=== PATIENT | male | born 1940 | race Caucasian/White ===

== ENCOUNTER 2022-04-22 08:39 | Inpatient (IN) ==
[2022-04-22] MEDS ORDERED: Ipratropium/Albuterol Neb 3 ML IH PRN (16:55)
[2022-04-22] MEDS ORDERED: polyethylene glycoL 3350 17 GM POWD.PACK PO PRN (17:02)
[2022-04-22] MEDS ORDERED: Saliva Stimulant 44.3ml BOTTLE PO PRN (17:21)
[2022-04-22] MEDS: risperiDONE 0.25 MG TABLET PO SCH (20:59)
[2022-04-22] MEDS: Budesonide/Formoterol 160/4.5 1 PUFF INH IH SCH (21:31)
[2022-04-23 05:19] LABS: Basophils % 0.3 %; Eosinophils % 0.2 %; Hematocrit 38.3 % (37.5-50.1); Hemoglobin 12.6 g/dL (12.9-16.9); Immature Granulocytes % 1.1 % (0-4); Lymphocytes # 0.9 K/mcL (0.6-4.6); Lymphocytes % 9.3 %; Mean Corpuscular HGB Conc 32.9 g/dL (31.6-35.5); Mean Corpuscular Hemoglobin 30.3 pg (28.0-33.3); Mean Corpuscular Volume 92.1 fL (83.0-100.0); Mean Platelet Volume 9.6 fL (9.4-12.4); Monocytes # 0.9 K/mcL (0.0-1.3); Monocytes % 9.3 %; Neutrophils # 7.6 K/mcL (1.6-8.9); Platelet Count 211 K/mcL (140-400); Red Blood Count 4.16 M/mcL (4.19-5.50); Red Cell Distribution Width 13.1 % (11.5-14.5); Segmented Neutrophils % 79.8 %; White Blood Count 9.6 K/mcL (4.3-11.1)
[2022-04-23 05:37] LABS: BUN/Creatinine Ratio 25 (6-26); Blood Urea Nitrogen 29 mg/dL (8-23); Calcium 9.1 mg/dL (8.6-10.3); Carbon Dioxide 29 mEq/L (23-29); Chloride 106 mEq/L (98-107); Glucose 111 mg/dL (70-105); Osmolality,Calculated 299 (280-300); Sodium 141 mEq/L (136-145); eGFR For African Americans > 60 (> 60); eGFR For Non-African Americans > 60 (> 60)
[2022-04-23] MEDS: *HR* Enoxaparin 40 MG/0.4 ML SYRINGE SQ SCH (05:43)
[2022-04-23] MEDS: Aspirin Enteric Coated 81 MG Tablet PO SCH (08:54)
[2022-04-23] MEDS: Fenofibrate 54 MG TABLET PO SCH (08:54)
[2022-04-23] MEDS ORDERED: Acetaminophen 325 MG TABLET PO SCH (09:00)
[2022-04-23] MEDS: Budesonide/Formoterol 160/4.5 1 PUFF INH IH SCH ×2 (09:55→22:13)
[2022-04-23] MEDS: Tiotropium 10 INH DOSE IH SCH (09:55)
[2022-04-23] MEDS: Fluticasone Propionate Nasal 50 MCG/SPRAY BOTTLE NS SCH (10:10)
[2022-04-23] MEDS: polyethylene glycoL 3350 17 GM POWD.PACK PO SCH (12:39)
[2022-04-23] MEDS: Melatonin 3 MG TABLET PO PRN (20:29)
[2022-04-23] MEDS: risperiDONE 0.25 MG TABLET PO SCH (20:29)
[2022-04-24] MEDS: *HR* Enoxaparin 40 MG/0.4 ML SYRINGE SQ SCH (04:59)
[2022-04-24] MEDS: polyethylene glycoL 3350 17 GM POWD.PACK PO SCH (09:07)
[2022-04-24] MEDS: Fluticasone Propionate Nasal 50 MCG/SPRAY BOTTLE NS SCH (09:08)
[2022-04-24] MEDS: Fenofibrate 54 MG TABLET PO SCH (09:08)
[2022-04-24] MEDS: Aspirin Enteric Coated 81 MG Tablet PO SCH (09:09)
[2022-04-24] MEDS: Tiotropium 10 INH DOSE IH SCH (10:12)
[2022-04-24] MEDS: Budesonide/Formoterol 160/4.5 1 PUFF INH IH SCH ×2 (10:12→19:41)
[2022-04-24] MEDS: risperiDONE 0.25 MG TABLET PO SCH (20:40)
[2022-04-24] MEDS: Melatonin 3 MG TABLET PO PRN (20:40)
[2022-04-25] MEDS: *HR* Enoxaparin 40 MG/0.4 ML SYRINGE SQ SCH (04:43)
[2022-04-25 04:46] LABS: Hematocrit 36.4 % (37.5-50.1); Hemoglobin 11.9 g/dL (12.9-16.9); Mean Corpuscular HGB Conc 32.7 g/dL (31.6-35.5); Mean Corpuscular Hemoglobin 30.3 pg (28.0-33.3); Mean Corpuscular Volume 92.6 fL (83.0-100.0); Mean Platelet Volume 9.5 fL (9.4-12.4); Platelet Count 202 K/mcL (140-400); Red Blood Count 3.93 M/mcL (4.19-5.50); Red Cell Distribution Width 13.3 % (11.5-14.5); White Blood Count 8.7 K/mcL (4.3-11.1)
[2022-04-25 05:02] LABS: BUN/Creatinine Ratio 21 (6-26); Blood Urea Nitrogen 21 mg/dL (8-23); Calcium 9.2 mg/dL (8.6-10.3); Carbon Dioxide 28 mEq/L (23-29); Chloride 103 mEq/L (98-107); Glucose 109 mg/dL (70-105); Osmolality,Calculated 288 (280-300); Potassium 4.1 mEq/L (3.5-5.1); Sodium 137 mEq/L (136-145); eGFR For African Americans > 60 (> 60); eGFR For Non-African Americans > 60 (> 60)
[2022-04-25] MEDS: Fenofibrate 54 MG TABLET PO SCH (08:18)
[2022-04-25] MEDS: Aspirin Enteric Coated 81 MG Tablet PO SCH (08:19)
[2022-04-25] MEDS: polyethylene glycoL 3350 17 GM POWD.PACK PO SCH (08:21)
[2022-04-25] MEDS: Fluticasone Propionate Nasal 50 MCG/SPRAY BOTTLE NS SCH (08:22)
[2022-04-25] MEDS: Budesonide/Formoterol 160/4.5 1 PUFF INH IH SCH ×2 (09:00→21:09)
[2022-04-25] MEDS: Tiotropium 10 INH DOSE IH SCH (09:00)
[2022-04-25] MEDS ORDERED: Perflutren Lipid Microsphere 1.3 ML in 0.9 % Sodium Chloride 8.7 ML IVP PRN (10:01)
[2022-04-25] MEDS ORDERED: polyethylene glycoL 3350 17 GM POWD.PACK PO ONE (16:30)
[2022-04-25] MEDS: risperiDONE 0.25 MG TABLET PO SCH (20:22)
[2022-04-25] MEDS: Melatonin 3 MG TABLET PO PRN (20:22)
[2022-04-26] MEDS: *HR* Enoxaparin 40 MG/0.4 ML SYRINGE SQ SCH (04:29)
[2022-04-26] MEDS: Budesonide/Formoterol 160/4.5 1 PUFF INH IH SCH ×2 (07:47→21:12)
[2022-04-26] MEDS: Tiotropium 10 INH DOSE IH SCH (07:48)
[2022-04-26] MEDS: Fenofibrate 54 MG TABLET PO SCH (08:16)
[2022-04-26] MEDS: Aspirin Enteric Coated 81 MG Tablet PO SCH (08:16)
[2022-04-26] MEDS: polyethylene glycoL 3350 17 GM POWD.PACK PO SCH (08:17)
[2022-04-26] MEDS: Fluticasone Propionate Nasal 50 MCG/SPRAY BOTTLE NS SCH (08:18)
[2022-04-26] MEDS: risperiDONE 0.25 MG TABLET PO SCH (20:04)
[2022-04-27] MEDS: *HR* Enoxaparin 40 MG/0.4 ML SYRINGE SQ SCH (05:35)
[2022-04-27] MEDS: Fenofibrate 54 MG TABLET PO SCH (08:37)
[2022-04-27] MEDS: Aspirin Enteric Coated 81 MG Tablet PO SCH (08:37)
[2022-04-27] MEDS: polyethylene glycoL 3350 17 GM POWD.PACK PO SCH (08:38)
[2022-04-27] MEDS ORDERED: Ergocalciferol (VIT D2) 50,000 UNIT (1.25MG) CAP PO SCH (09:00)
[2022-04-27] MEDS: Tiotropium 10 INH DOSE IH SCH (10:19)
[2022-04-27] MEDS: Budesonide/Formoterol 160/4.5 1 PUFF INH IH SCH ×2 (10:21→19:03)
[2022-04-27] MEDS: Fluticasone Propionate Nasal 50 MCG/SPRAY BOTTLE NS SCH (12:06)
[2022-04-27] MEDS: Melatonin 3 MG TABLET PO PRN (23:00)
[2022-04-27] MEDS: risperiDONE 0.25 MG TABLET PO SCH (23:01)
[2022-04-28] MEDS: *HR* Enoxaparin 40 MG/0.4 ML SYRINGE SQ SCH (06:28)
[2022-04-28] MEDS: polyethylene glycoL 3350 17 GM POWD.PACK PO SCH (08:50)
[2022-04-28] MEDS: Fenofibrate 54 MG TABLET PO SCH (08:50)
[2022-04-28] MEDS: Aspirin Enteric Coated 81 MG Tablet PO SCH (08:50)
[2022-04-28] MEDS: Fluticasone Propionate Nasal 50 MCG/SPRAY BOTTLE NS SCH (08:51)
[2022-04-28] MEDS: Tiotropium 10 INH DOSE IH SCH (14:31)
[2022-04-28] MEDS: Budesonide/Formoterol 160/4.5 1 PUFF INH IH SCH ×2 (14:32→19:17)
[2022-04-28] MEDS: risperiDONE 0.25 MG TABLET PO SCH (21:43)
[2022-04-29] MEDS: *HR* Enoxaparin 40 MG/0.4 ML SYRINGE SQ SCH (05:02)
[2022-04-29] MEDS: Budesonide/Formoterol 160/4.5 1 PUFF INH IH SCH ×2 (07:30→21:21)
[2022-04-29] MEDS: Tiotropium 10 INH DOSE IH SCH (07:30)
[2022-04-29] MEDS: Aspirin Enteric Coated 81 MG Tablet PO SCH (10:30)
[2022-04-29] MEDS: Fenofibrate 54 MG TABLET PO SCH (10:30)
[2022-04-29] MEDS: polyethylene glycoL 3350 17 GM POWD.PACK PO SCH ×2 (10:30→10:34)
[2022-04-29] MEDS: Fluticasone Propionate Nasal 50 MCG/SPRAY BOTTLE NS SCH (10:32)
[2022-04-29] MEDS: Melatonin 3 MG TABLET PO PRN (20:46)
[2022-04-29] MEDS: risperiDONE 0.25 MG TABLET PO SCH (20:47)
[2022-04-30] MEDS: *HR* Enoxaparin 40 MG/0.4 ML SYRINGE SQ SCH (06:50)
[2022-04-30] MEDS: polyethylene glycoL 3350 17 GM POWD.PACK PO SCH (09:03)
[2022-04-30] MEDS: Aspirin Enteric Coated 81 MG Tablet PO SCH (09:04)
[2022-04-30] MEDS: Fenofibrate 54 MG TABLET PO SCH (09:04)
[2022-04-30] MEDS: Fluticasone Propionate Nasal 50 MCG/SPRAY BOTTLE NS SCH (09:05)
[2022-04-30] MEDS: Tiotropium 10 INH DOSE IH SCH (10:33)
[2022-04-30] MEDS: Budesonide/Formoterol 160/4.5 1 PUFF INH IH SCH ×2 (10:36→21:13)
[2022-04-30] MEDS: Acetaminophen 325 MG TABLET PO PRN (20:16)
[2022-04-30] MEDS: risperiDONE 0.25 MG TABLET PO SCH (20:17)
[2022-04-30] MEDS: Melatonin 3 MG TABLET PO PRN (20:17)
[2022-05-01] MEDS: *HR* Enoxaparin 40 MG/0.4 ML SYRINGE SQ SCH (05:30)
[2022-05-01] MEDS: Fenofibrate 54 MG TABLET PO SCH (08:43)
[2022-05-01] MEDS: Aspirin Enteric Coated 81 MG Tablet PO SCH (08:43)
[2022-05-01] MEDS: polyethylene glycoL 3350 17 GM POWD.PACK PO SCH (08:44)
[2022-05-01] MEDS: Fluticasone Propionate Nasal 50 MCG/SPRAY BOTTLE NS SCH (08:44)
[2022-05-01] MEDS: Tiotropium 10 INH DOSE IH SCH (11:09)
[2022-05-01] MEDS: Budesonide/Formoterol 160/4.5 1 PUFF INH IH SCH ×2 (11:11→19:06)
[2022-05-01] MEDS: Acetaminophen 325 MG TABLET PO PRN (20:01)
[2022-05-01] MEDS: Melatonin 3 MG TABLET PO PRN (20:01)
[2022-05-01] MEDS: risperiDONE 0.25 MG TABLET PO SCH (20:02)
[2022-05-02 05:03] LABS: Basophils # 0.1 K/mcL (0.0-0.2); Basophils % 0.7 %; Eosinophils # 0.2 K/mcL (0.0-0.6); Eosinophils % 3.2 %; Hematocrit 35.2 % (37.5-50.1); Hemoglobin 11.4 g/dL (12.9-16.9); Immature Granulocytes % 1.9 % (0-4); Lymphocytes % 13.4 %; Mean Corpuscular HGB Conc 32.4 g/dL (31.6-35.5); Mean Corpuscular Hemoglobin 30.5 pg (28.0-33.3); Mean Corpuscular Volume 94.1 fL (83.0-100.0); Mean Platelet Volume 9.7 fL (9.4-12.4); Monocytes # 0.6 K/mcL (0.0-1.3); Monocytes % 8.6 %; Neutrophils # 5.3 K/mcL (1.6-8.9); Platelet Count 176 K/mcL (140-400); Red Blood Count 3.74 M/mcL (4.19-5.50); Red Cell Distribution Width 13.6 % (11.5-14.5); Segmented Neutrophils % 72.2 %; White Blood Count 7.3 K/mcL (4.3-11.1)
[2022-05-02] MEDS: *HR* Enoxaparin 40 MG/0.4 ML SYRINGE SQ SCH (05:10)
[2022-05-02 05:14] LABS: BUN/Creatinine Ratio 26 (6-26); Blood Urea Nitrogen 28 mg/dL (8-23); Calcium 9.7 mg/dL (8.6-10.3); Carbon Dioxide 27 mEq/L (23-29); Chloride 107 mEq/L (98-107); Glucose 102 mg/dL (70-105); Osmolality,Calculated 294 (280-300); Potassium 4.2 mEq/L (3.5-5.1); Sodium 139 mEq/L (136-145); eGFR For African Americans > 60 (> 60); eGFR For Non-African Americans > 60 (> 60)
[2022-05-02] MEDS: Aspirin Enteric Coated 81 MG Tablet PO SCH (08:05)
[2022-05-02] MEDS: Fenofibrate 54 MG TABLET PO SCH (08:05)
[2022-05-02] MEDS: Fluticasone Propionate Nasal 50 MCG/SPRAY BOTTLE NS SCH (08:06)
[2022-05-02] MEDS: polyethylene glycoL 3350 17 GM POWD.PACK PO SCH (08:06)
[2022-05-02] MEDS: Tiotropium 10 INH DOSE IH SCH (10:16)
[2022-05-02] MEDS: Budesonide/Formoterol 160/4.5 1 PUFF INH IH SCH ×2 (10:17→21:54)
[2022-05-02] MEDS: risperiDONE 0.25 MG TABLET PO SCH (21:18)
[2022-05-02] MEDS: Melatonin 3 MG TABLET PO PRN (21:18)
[2022-05-02] MEDS: Acetaminophen 325 MG TABLET PO PRN (21:18)
[2022-05-03 04:18] VITALS: O2SAT 98
[2022-05-03] MEDS: *HR* Enoxaparin 40 MG/0.4 ML SYRINGE SQ SCH (05:35)
[2022-05-03 07:32] VITALS: BP 117/76; PULSE 56; TEMP 98.3
[2022-05-03] MEDS: Fenofibrate 54 MG TABLET PO SCH (08:14)
[2022-05-03] MEDS: polyethylene glycoL 3350 17 GM POWD.PACK PO SCH (08:14)
[2022-05-03] MEDS: Aspirin Enteric Coated 81 MG Tablet PO SCH (08:14)
[2022-05-03] MEDS: Tiotropium 10 INH DOSE IH SCH (09:21)
[2022-05-03] MEDS: Budesonide/Formoterol 160/4.5 1 PUFF INH IH SCH (09:21)
[2022-05-03 09:23] VITALS: RESP 16
== END 2022-05-03 14:14 | disposition home or self-care (01) | DRG 199 ==
LOC: INPGRE 15:41
PROVIDERS: ADMIT Family Medicine; ATTEND Family Medicine

== ENCOUNTER 2022-06-01 00:10 | Inpatient (IN) ==
[2022-06-01] MEDS ORDERED: Fluticasone Propionate Nasal 50 MCG/SPRAY BOTTLE NS PRN (00:47)
[2022-06-01] MEDS ORDERED: polyethylene glycoL 3350 17 GM POWD.PACK PO PRN (00:47)
[2022-06-01] MEDS ORDERED: Triamcinolone Acet 0.1% CRM 15 GM TUBE TP PRN (00:47)
[2022-06-01 03:14] LABS: Bilirubin,Urine Negative (Negative); Blood,Urine Negative (Negative); Clarity,Urine Clear (Clear); Color,Urine Yellow (Yellow); Glucose,Urine (UA) Normal (Normal); Ketones,Urine Negative (Negative); Leukocyte Esterase,Urine Negative (Negative); Nitrite,Urine Negative (Negative); Protein,Urine Negative (Neg-Trace); Specific Gravity,Urine 1.015 (1.010-1.025); Urobilinogen,Urine Normal (Normal)
[2022-06-01 04:30] LABS: Basophils # 0.1 K/mcL (0.0-0.2); Basophils % 0.6 %; Eosinophils # 0.2 K/mcL (0.0-0.6); Eosinophils % 2.5 %; Hematocrit 35.2 % (37.5-50.1); Hemoglobin 11.8 g/dL (12.9-16.9); Immature Granulocytes % 0.9 % (0-4); Mean Corpuscular HGB Conc 33.5 g/dL (31.6-35.5); Mean Corpuscular Hemoglobin 30.6 pg (28.0-33.3); Mean Corpuscular Volume 91.2 fL (83.0-100.0); Mean Platelet Volume 9.5 fL (9.4-12.4); Monocytes # 0.8 K/mcL (0.0-1.3); Monocytes % 8.4 %; Platelet Count 181 K/mcL (140-400); Red Blood Count 3.86 M/mcL (4.19-5.50); Red Cell Distribution Width 13.6 % (11.5-14.5); Segmented Neutrophils % 76.6 %; White Blood Count 9.1 K/mcL (4.3-11.1)
[2022-06-01 04:46] LABS: Albumin 3.9 g/dL (3.5-5.7); Albumin/Globulin Ratio 1.4 (1.1-2.2); Bilirubin,Direct 0.1 mg/dL (0.0-0.2); Bilirubin,Indirect 0.4 mg/dL (0.0-1.0); Bilirubin,Total 0.5 mg/dL (0.3-1.0); Calcium 9.6 mg/dL (8.6-10.3); Globulin 2.8 g/dL (2.4-3.5); Total Protein 6.7 g/dL (6.4-8.9)
[2022-06-01] MEDS: *HR* Enoxaparin 40 MG/0.4 ML SYRINGE SQ SCH (05:47)
[2022-06-01] MEDS: Tiotropium 10 INH DOSE IH SCH (08:03)
[2022-06-01] MEDS: Budesonide/Formoterol 160/4.5 1 PUFF INH IH SCH (08:03)
[2022-06-01] MEDS: Fenofibrate 54 MG TABLET PO SCH (08:06)
[2022-06-01] MEDS: Cholecalciferol (D-3) 1,000 UNIT (25MCG) TABLET PO SCH (08:06)
[2022-06-01] MEDS: Vitamin B Complex/Vit C/Vit E 1 EACH TABLET PO SCH (08:06)
[2022-06-01] MEDS: Thiamine (B-1) 100 MG TABLET PO SCH (08:06)
[2022-06-01] MEDS: Aspirin Enteric Coated 81 MG Tablet PO SCH (08:06)
[2022-06-01] MEDS: Folic Acid 1 MG TABLET PO SCH (08:06)
[2022-06-01] MEDS: Melatonin 3 MG TABLET PO PRN (20:11)
[2022-06-01] MEDS: CLEAR EYES NATURAL TEARS 15 ML BOTTLE BOTH EYES SCH (20:12)
[2022-06-01] MEDS: risperiDONE 0.25 MG TABLET PO SCH (20:12)
[2022-06-02] MEDS: *HR* Enoxaparin 40 MG/0.4 ML SYRINGE SQ SCH (04:45)
[2022-06-02] MEDS: Budesonide/Formoterol 160/4.5 1 PUFF INH IH SCH (08:00)
[2022-06-02] MEDS: Tiotropium 10 INH DOSE IH SCH (08:01)
[2022-06-02] MEDS: Aspirin Enteric Coated 81 MG Tablet PO SCH (08:27)
[2022-06-02] MEDS: Fenofibrate 54 MG TABLET PO SCH (08:28)
[2022-06-02] MEDS: Thiamine (B-1) 100 MG TABLET PO SCH (08:28)
[2022-06-02] MEDS: Vitamin B Complex/Vit C/Vit E 1 EACH TABLET PO SCH (08:28)
[2022-06-02] MEDS: Folic Acid 1 MG TABLET PO SCH (08:28)
[2022-06-02] MEDS: Cholecalciferol (D-3) 1,000 UNIT (25MCG) TABLET PO SCH (08:28)
[2022-06-02] MEDS: risperiDONE 0.25 MG TABLET PO SCH (20:11)
[2022-06-02] MEDS: Melatonin 3 MG TABLET PO PRN (20:12)
[2022-06-02] MEDS: CLEAR EYES NATURAL TEARS 15 ML BOTTLE BOTH EYES SCH (20:15)
[2022-06-03] MEDS: *HR* Enoxaparin 40 MG/0.4 ML SYRINGE SQ SCH (06:13)
[2022-06-03] MEDS: Folic Acid 1 MG TABLET PO SCH (07:54)
[2022-06-03] MEDS: Cholecalciferol (D-3) 1,000 UNIT (25MCG) TABLET PO SCH (07:54)
[2022-06-03] MEDS: Vitamin B Complex/Vit C/Vit E 1 EACH TABLET PO SCH (07:54)
[2022-06-03] MEDS: Aspirin Enteric Coated 81 MG Tablet PO SCH (07:54)
[2022-06-03] MEDS: Fenofibrate 54 MG TABLET PO SCH (07:54)
[2022-06-03] MEDS: Thiamine (B-1) 100 MG TABLET PO SCH (07:54)
[2022-06-03] MEDS: Budesonide/Formoterol 160/4.5 1 PUFF INH IH SCH (10:06)
[2022-06-03] MEDS: Tiotropium 10 INH DOSE IH SCH (10:06)
[2022-06-03] MEDS: risperiDONE 0.25 MG TABLET PO SCH (20:41)
[2022-06-03] MEDS: CLEAR EYES NATURAL TEARS 15 ML BOTTLE BOTH EYES SCH (20:46)
[2022-06-04] MEDS: *HR* Enoxaparin 40 MG/0.4 ML SYRINGE SQ SCH (04:18)
[2022-06-04] MEDS: Tiotropium 10 INH DOSE IH SCH (07:52)
[2022-06-04] MEDS: Budesonide/Formoterol 160/4.5 1 PUFF INH IH SCH (07:52)
[2022-06-04] MEDS: Thiamine (B-1) 100 MG TABLET PO SCH (08:08)
[2022-06-04] MEDS: Folic Acid 1 MG TABLET PO SCH (08:08)
[2022-06-04] MEDS: Vitamin B Complex/Vit C/Vit E 1 EACH TABLET PO SCH (08:08)
[2022-06-04] MEDS: Aspirin Enteric Coated 81 MG Tablet PO SCH (08:08)
[2022-06-04] MEDS: Cholecalciferol (D-3) 1,000 UNIT (25MCG) TABLET PO SCH (08:08)
[2022-06-04] MEDS: Fenofibrate 54 MG TABLET PO SCH (08:09)
[2022-06-04] MEDS: risperiDONE 0.25 MG TABLET PO SCH (20:38)
[2022-06-04] MEDS: Melatonin 3 MG TABLET PO SCH (20:38)
[2022-06-04] MEDS: CLEAR EYES NATURAL TEARS 15 ML BOTTLE BOTH EYES SCH (20:39)
[2022-06-05 04:35] LABS: Hematocrit 36.4 % (37.5-50.1); Hemoglobin 11.9 g/dL (12.9-16.9); Mean Corpuscular HGB Conc 32.7 g/dL (31.6-35.5); Mean Corpuscular Hemoglobin 30.2 pg (28.0-33.3); Mean Corpuscular Volume 92.4 fL (83.0-100.0); Mean Platelet Volume 9.7 fL (9.4-12.4); Platelet Count 184 K/mcL (140-400); Red Blood Count 3.94 M/mcL (4.19-5.50); Red Cell Distribution Width 13.8 % (11.5-14.5); White Blood Count 6.8 K/mcL (4.3-11.1)
[2022-06-05] MEDS: *HR* Enoxaparin 40 MG/0.4 ML SYRINGE SQ SCH (04:35)
[2022-06-05 04:49] LABS: Calcium 9.9 mg/dL (8.6-10.3); Potassium 4.3 mEq/L (3.5-5.1)
[2022-06-05] MEDS: Tiotropium 10 INH DOSE IH SCH (07:47)
[2022-06-05] MEDS: Budesonide/Formoterol 160/4.5 1 PUFF INH IH SCH (07:47)
[2022-06-05] MEDS: Cholecalciferol (D-3) 1,000 UNIT (25MCG) TABLET PO SCH (08:25)
[2022-06-05] MEDS: Thiamine (B-1) 100 MG TABLET PO SCH (08:25)
[2022-06-05] MEDS: Folic Acid 1 MG TABLET PO SCH (08:25)
[2022-06-05] MEDS: Aspirin Enteric Coated 81 MG Tablet PO SCH (08:25)
[2022-06-05] MEDS: Fenofibrate 54 MG TABLET PO SCH (08:25)
[2022-06-05] MEDS: Vitamin B Complex/Vit C/Vit E 1 EACH TABLET PO SCH (08:25)
[2022-06-05] MEDS: Neosporin OINT 1 APPL PACKET TP SCH (18:44)
[2022-06-05] MEDS: Melatonin 3 MG TABLET PO SCH (21:14)
[2022-06-05] MEDS: Acetaminophen 325 MG TABLET PO PRN (21:14)
[2022-06-05] MEDS: risperiDONE 0.25 MG TABLET PO SCH (21:14)
[2022-06-05] MEDS: CLEAR EYES NATURAL TEARS 15 ML BOTTLE BOTH EYES SCH (21:21)
[2022-06-06] MEDS: *HR* Enoxaparin 40 MG/0.4 ML SYRINGE SQ SCH (04:49)
[2022-06-06] MEDS: Budesonide/Formoterol 160/4.5 1 PUFF INH IH SCH (07:43)
[2022-06-06] MEDS: Tiotropium 10 INH DOSE IH SCH (07:43)
[2022-06-06] MEDS: Fenofibrate 54 MG TABLET PO SCH (07:59)
[2022-06-06] MEDS: Aspirin Enteric Coated 81 MG Tablet PO SCH (07:59)
[2022-06-06] MEDS: Cholecalciferol (D-3) 1,000 UNIT (25MCG) TABLET PO SCH (07:59)
[2022-06-06] MEDS: Folic Acid 1 MG TABLET PO SCH (07:59)
[2022-06-06] MEDS: Vitamin B Complex/Vit C/Vit E 1 EACH TABLET PO SCH (08:00)
[2022-06-06] MEDS: Neosporin OINT 1 APPL PACKET TP SCH (08:00)
[2022-06-06] MEDS: Thiamine (B-1) 100 MG TABLET PO SCH (08:00)
[2022-06-06] MEDS: Melatonin 3 MG TABLET PO SCH (19:46)
[2022-06-06] MEDS: Acetaminophen 325 MG TABLET PO PRN (19:46)
[2022-06-06] MEDS: risperiDONE 0.25 MG TABLET PO SCH (19:47)
[2022-06-06] MEDS: CLEAR EYES NATURAL TEARS 15 ML BOTTLE BOTH EYES SCH (19:47)
[2022-06-07] MEDS: *HR* Enoxaparin 40 MG/0.4 ML SYRINGE SQ SCH (04:43)
[2022-06-07] MEDS: Fenofibrate 54 MG TABLET PO SCH (07:56)
[2022-06-07] MEDS: Neosporin OINT 1 APPL PACKET TP SCH (07:56)
[2022-06-07] MEDS: Thiamine (B-1) 100 MG TABLET PO SCH (07:56)
[2022-06-07] MEDS: Vitamin B Complex/Vit C/Vit E 1 EACH TABLET PO SCH (07:56)
[2022-06-07] MEDS: Aspirin Enteric Coated 81 MG Tablet PO SCH (07:56)
[2022-06-07] MEDS: Folic Acid 1 MG TABLET PO SCH (07:56)
[2022-06-07] MEDS: Cholecalciferol (D-3) 1,000 UNIT (25MCG) TABLET PO SCH (07:56)
[2022-06-07] MEDS: Tiotropium 10 INH DOSE IH SCH (09:48)
[2022-06-07] MEDS: Budesonide/Formoterol 160/4.5 1 PUFF INH IH SCH (09:48)
[2022-06-07 21:48] VITALS: BP 133/73; PULSE 71; RESP 17; TEMP 98.3; O2SAT 93
== END 2022-06-07 10:55 | disposition home health service (06) | DRG 951 ==
LOC: INPGRE 00:11
PROVIDERS: ADMIT Family Medicine; ATTEND Family Medicine

== ENCOUNTER 2022-07-08 13:43 | Inpatient (IN) ==
[2022-07-08] MEDS ORDERED: Fluticasone Propionate Nasal 50 MCG/SPRAY BOTTLE NS PRN (19:28)
[2022-07-08] MEDS: Ipratropium/Albuterol Neb 3 ML IH SCH (20:37)
[2022-07-08] MEDS: risperiDONE 0.25 MG TABLET PO SCH (22:00)
[2022-07-08] MEDS ORDERED: Ondansetron 4 MG/2 ML VIAL IVP PRN (23:13)
[2022-07-09 05:04] LABS: Basophils % 0.3 %; Eosinophils # 0.3 K/mcL (0.0-0.6); Eosinophils % 2.1 %; Hematocrit 31.2 % (37.5-50.1); Hemoglobin 10.3 g/dL (12.9-16.9); Immature Granulocytes % 1.8 % (0-4); Lymphocytes # 0.4 K/mcL (0.6-4.6); Lymphocytes % 3.3 %; Mean Corpuscular Hemoglobin 30.3 pg (28.0-33.3); Mean Corpuscular Volume 91.8 fL (83.0-100.0); Mean Platelet Volume 9.2 fL (9.4-12.4); Monocytes # 0.9 K/mcL (0.0-1.3); Monocytes % 6.9 %; Neutrophils # 10.8 K/mcL (1.6-8.9); Platelet Count 287 K/mcL (140-400); Red Cell Distribution Width 13.6 % (11.5-14.5); Segmented Neutrophils % 85.6 %; White Blood Count 12.6 K/mcL (4.3-11.1)
[2022-07-09 05:20] LABS: Albumin 3.3 g/dL (3.5-5.7); Albumin/Globulin Ratio 1.1 (1.1-2.2); Bilirubin,Total 0.6 mg/dL (0.3-1.0); Calcium 9.1 mg/dL (8.6-10.3); Globulin 3.1 g/dL (2.4-3.5); Total Protein 6.4 g/dL (6.4-8.9)
[2022-07-09] MEDS: *HR* Enoxaparin 40 MG/0.4 ML SYRINGE SQ SCH (06:03)
[2022-07-09] MEDS: Ipratropium/Albuterol Neb 3 ML IH SCH ×2 (09:53→19:49)
[2022-07-09] MEDS: Tiotropium 10 INH DOSE IH SCH (09:54)
[2022-07-09] MEDS ORDERED: Ondansetron 4 MG/2 ML VIAL IVP PRN (09:55)
[2022-07-09] MEDS: Budesonide/Formoterol 160/4.5 1 PUFF INH IH SCH ×2 (09:56→19:49)
[2022-07-09] MEDS: Fenofibrate 54 MG TABLET PO SCH (10:23)
[2022-07-09] MEDS: Acetaminophen 325 MG TABLET PO SCH (10:23)
[2022-07-09] MEDS: Vitamin B Complex/Vit C/Vit E 1 EACH TABLET PO SCH (10:23)
[2022-07-09] MEDS: Aspirin Enteric Coated 81 MG Tablet PO SCH (10:23)
[2022-07-09] MEDS: levoFLOXacin 750 MG TABLET PO SCH (10:24)
[2022-07-09] MEDS: Triamcinolone Acet 0.1% CRM 15 GM TUBE TP SCH (10:24)
[2022-07-09] MEDS: risperiDONE 0.25 MG TABLET PO SCH (21:35)
[2022-07-10 05:05] LABS: Hemoglobin 10.2 g/dL (12.9-16.9); Mean Corpuscular HGB Conc 32.9 g/dL (31.6-35.5); Mean Corpuscular Hemoglobin 30.2 pg (28.0-33.3); Mean Corpuscular Volume 91.7 fL (83.0-100.0); Platelet Count 281 K/mcL (140-400); Red Blood Count 3.38 M/mcL (4.19-5.50); Red Cell Distribution Width 13.3 % (11.5-14.5); White Blood Count 10.4 K/mcL (4.3-11.1)
[2022-07-10] MEDS: *HR* Enoxaparin 40 MG/0.4 ML SYRINGE SQ SCH (05:10)
[2022-07-10 05:21] LABS: Calcium 8.8 mg/dL (8.6-10.3); Potassium 3.8 mEq/L (3.5-5.1)
[2022-07-10] MEDS: Tiotropium 10 INH DOSE IH SCH (08:14)
[2022-07-10] MEDS: Budesonide/Formoterol 160/4.5 1 PUFF INH IH SCH ×2 (08:15→20:50)
[2022-07-10] MEDS: Ipratropium/Albuterol Neb 3 ML IH SCH ×2 (08:19→20:48)
[2022-07-10] MEDS ORDERED: Furosemide 20 MG/2 ML VIAL IVP ONE (09:47)
[2022-07-10] MEDS: Vitamin B Complex/Vit C/Vit E 1 EACH TABLET PO SCH (10:01)
[2022-07-10] MEDS: levoFLOXacin 750 MG TABLET PO SCH (10:01)
[2022-07-10] MEDS: Aspirin Enteric Coated 81 MG Tablet PO SCH (10:01)
[2022-07-10] MEDS: Acetaminophen 325 MG TABLET PO SCH (10:01)
[2022-07-10] MEDS: Fenofibrate 54 MG TABLET PO SCH (10:01)
[2022-07-10] MEDS: Triamcinolone Acet 0.1% CRM 15 GM TUBE TP SCH (10:05)
[2022-07-10] MEDS ORDERED: *HR* HYDROcodone/Acet 5/325 mg TABLET PO PRN (13:51)
[2022-07-10] MEDS ORDERED: *HR* OxyCODONE Immed Rel 5 MG TABLET PO PRN (14:09)
[2022-07-10] MEDS: Gabapentin 100 MG CAPSULE PO SCH ×2 (15:24→21:27)
[2022-07-10] MEDS: polyethylene glycoL 3350 17 GM POWD.PACK PO PRN (17:02)
[2022-07-10] MEDS: risperiDONE 0.25 MG TABLET PO SCH (21:27)
[2022-07-11 04:26] LABS: Hematocrit 31.6 % (37.5-50.1); Hemoglobin 10.3 g/dL (12.9-16.9); Mean Corpuscular HGB Conc 32.6 g/dL (31.6-35.5); Mean Corpuscular Volume 92.1 fL (83.0-100.0); Mean Platelet Volume 8.8 fL (9.4-12.4); Platelet Count 281 K/mcL (140-400); Red Blood Count 3.43 M/mcL (4.19-5.50); Red Cell Distribution Width 13.4 % (11.5-14.5); White Blood Count 9.3 K/mcL (4.3-11.1)
[2022-07-11 04:42] LABS: Albumin 3.2 g/dL (3.5-5.7); Albumin/Globulin Ratio 1.1 (1.1-2.2); Bilirubin,Total 0.4 mg/dL (0.3-1.0); Calcium 9.2 mg/dL (8.6-10.3); Globulin 2.9 g/dL (2.4-3.5); Total Protein 6.1 g/dL (6.4-8.9)
[2022-07-11] MEDS: Gabapentin 100 MG CAPSULE PO SCH ×3 (09:25→21:08)
[2022-07-11] MEDS: Aspirin Enteric Coated 81 MG Tablet PO SCH (09:25)
[2022-07-11] MEDS: Vitamin B Complex/Vit C/Vit E 1 EACH TABLET PO SCH (09:25)
[2022-07-11] MEDS: Fenofibrate 54 MG TABLET PO SCH (09:25)
[2022-07-11] MEDS: Lactobacillus 1 EACH CAP.SPRINK PO SCH (09:25)
[2022-07-11] MEDS: levoFLOXacin 750 MG TABLET PO SCH (09:25)
[2022-07-11] MEDS: MethylPREDNISolone 40 MG/ML VIAL IVP SCH ×2 (09:25→17:30)
[2022-07-11] MEDS: Triamcinolone Acet 0.1% CRM 15 GM TUBE TP SCH (09:48)
[2022-07-11] MEDS: Tiotropium 10 INH DOSE IH SCH (10:06)
[2022-07-11] MEDS: Budesonide/Formoterol 160/4.5 1 PUFF INH IH SCH ×2 (10:07→20:48)
[2022-07-11] MEDS: Ipratropium/Albuterol Neb 3 ML IH SCH ×2 (10:08→20:48)
[2022-07-11] MEDS: risperiDONE 0.25 MG TABLET PO SCH (21:09)
[2022-07-12] MEDS: MethylPREDNISolone 40 MG/ML VIAL IVP SCH ×2 (05:41→16:55)
[2022-07-12] MEDS: *HR* Enoxaparin 40 MG/0.4 ML SYRINGE SQ SCH (05:42)
[2022-07-12] MEDS: Fenofibrate 54 MG TABLET PO SCH (09:08)
[2022-07-12] MEDS: Aspirin Enteric Coated 81 MG Tablet PO SCH (09:08)
[2022-07-12] MEDS: Lactobacillus 1 EACH CAP.SPRINK PO SCH (09:08)
[2022-07-12] MEDS: levoFLOXacin 750 MG TABLET PO SCH (09:08)
[2022-07-12] MEDS: Gabapentin 100 MG CAPSULE PO SCH ×3 (09:08→20:20)
[2022-07-12] MEDS: Vitamin B Complex/Vit C/Vit E 1 EACH TABLET PO SCH (09:08)
[2022-07-12] MEDS: Ipratropium/Albuterol Neb 3 ML IH SCH ×2 (09:39→21:34)
[2022-07-12] MEDS: Tiotropium 10 INH DOSE IH SCH (09:40)
[2022-07-12] MEDS: Budesonide/Formoterol 160/4.5 1 PUFF INH IH SCH ×2 (09:40→21:34)
[2022-07-12] MEDS: Triamcinolone Acet 0.1% CRM 15 GM TUBE TP SCH (10:30)
[2022-07-12] MEDS: risperiDONE 0.25 MG TABLET PO SCH (20:18)
[2022-07-13] MEDS: MethylPREDNISolone 40 MG/ML VIAL IVP SCH ×2 (05:04→17:59)
[2022-07-13] MEDS: *HR* Enoxaparin 40 MG/0.4 ML SYRINGE SQ SCH (05:09)
[2022-07-13] MEDS: Aspirin Enteric Coated 81 MG Tablet PO SCH (08:45)
[2022-07-13] MEDS: Vitamin B Complex/Vit C/Vit E 1 EACH TABLET PO SCH (08:45)
[2022-07-13] MEDS: levoFLOXacin 750 MG TABLET PO SCH (08:45)
[2022-07-13] MEDS: Gabapentin 100 MG CAPSULE PO SCH ×3 (08:45→21:05)
[2022-07-13] MEDS: Lactobacillus 1 EACH CAP.SPRINK PO SCH (08:45)
[2022-07-13] MEDS: Fenofibrate 54 MG TABLET PO SCH (08:45)
[2022-07-13] MEDS: Triamcinolone Acet 0.1% CRM 15 GM TUBE TP SCH (09:01)
[2022-07-13] MEDS: polyethylene glycoL 3350 17 GM POWD.PACK PO PRN (09:09)
[2022-07-13] MEDS: Tiotropium 10 INH DOSE IH SCH (10:16)
[2022-07-13] MEDS: Ipratropium/Albuterol Neb 3 ML IH SCH ×2 (10:16→20:11)
[2022-07-13] MEDS: Budesonide/Formoterol 160/4.5 1 PUFF INH IH SCH ×2 (10:16→20:11)
[2022-07-13] MEDS ORDERED: Ergocalciferol (VIT D2) 50,000 UNIT (1.25MG) CAP PO SCH ×2 (18:00→19:28)
[2022-07-13] MEDS: risperiDONE 0.25 MG TABLET PO SCH (21:04)
[2022-07-14] MEDS: *HR* Enoxaparin 40 MG/0.4 ML SYRINGE SQ SCH (05:42)
[2022-07-14] MEDS: MethylPREDNISolone 40 MG/ML VIAL IVP SCH ×2 (05:42→16:48)
[2022-07-14] MEDS: Gabapentin 100 MG CAPSULE PO SCH ×3 (09:08→21:11)
[2022-07-14] MEDS: Fenofibrate 54 MG TABLET PO SCH (09:08)
[2022-07-14] MEDS: levoFLOXacin 750 MG TABLET PO SCH (09:08)
[2022-07-14] MEDS: Aspirin Enteric Coated 81 MG Tablet PO SCH (09:08)
[2022-07-14] MEDS: Vitamin B Complex/Vit C/Vit E 1 EACH TABLET PO SCH (09:08)
[2022-07-14] MEDS: Lactobacillus 1 EACH CAP.SPRINK PO SCH (09:08)
[2022-07-14] MEDS: Triamcinolone Acet 0.1% CRM 15 GM TUBE TP SCH (09:10)
[2022-07-14] MEDS: Budesonide/Formoterol 160/4.5 1 PUFF INH IH SCH ×2 (10:17→20:39)
[2022-07-14] MEDS: Ipratropium/Albuterol Neb 3 ML IH SCH ×2 (10:17→20:39)
[2022-07-14] MEDS: Tiotropium 10 INH DOSE IH SCH (10:17)
[2022-07-14] MEDS: risperiDONE 0.25 MG TABLET PO SCH (21:11)
[2022-07-15 04:19] LABS: Basophils % 0.3 %; Hematocrit 31.1 % (37.5-50.1); Hemoglobin 10.3 g/dL (12.9-16.9); Immature Granulocytes % 5.4 % (0-4); Lymphocytes # 0.7 K/mcL (0.6-4.6); Lymphocytes % 5.1 %; Mean Corpuscular HGB Conc 33.1 g/dL (31.6-35.5); Mean Corpuscular Hemoglobin 30.1 pg (28.0-33.3); Mean Corpuscular Volume 90.9 fL (83.0-100.0); Mean Platelet Volume 8.6 fL (9.4-12.4); Monocytes # 0.8 K/mcL (0.0-1.3); Platelet Count 311 K/mcL (140-400); Red Blood Count 3.42 M/mcL (4.19-5.50); Red Cell Distribution Width 13.3 % (11.5-14.5); Segmented Neutrophils % 83.2 %; White Blood Count 13.2 K/mcL (4.3-11.1)
[2022-07-15 04:33] LABS: Calcium 8.8 mg/dL (8.6-10.3); Potassium 4.2 mEq/L (3.5-5.1)
[2022-07-15] MEDS: *HR* Enoxaparin 40 MG/0.4 ML SYRINGE SQ SCH (05:51)
[2022-07-15] MEDS: MethylPREDNISolone 40 MG/ML VIAL IVP SCH ×2 (05:51→17:03)
[2022-07-15] MEDS ORDERED: Gabapentin 100 MG CAPSULE PO PRN (07:54)
[2022-07-15] MEDS: Ipratropium/Albuterol Neb 3 ML IH SCH ×2 (09:30→20:30)
[2022-07-15] MEDS: Budesonide/Formoterol 160/4.5 1 PUFF INH IH SCH ×2 (09:30→20:31)
[2022-07-15] MEDS: Tiotropium 10 INH DOSE IH SCH (09:30)
[2022-07-15] MEDS: Fenofibrate 54 MG TABLET PO SCH (10:28)
[2022-07-15] MEDS: Lactobacillus 1 EACH CAP.SPRINK PO SCH (10:29)
[2022-07-15] MEDS: levoFLOXacin 750 MG TABLET PO SCH (10:29)
[2022-07-15] MEDS: Aspirin Enteric Coated 81 MG Tablet PO SCH (10:29)
[2022-07-15] MEDS: Vitamin B Complex/Vit C/Vit E 1 EACH TABLET PO SCH (10:29)
[2022-07-15] MEDS: Triamcinolone Acet 0.1% CRM 15 GM TUBE TP SCH (13:30)
[2022-07-15] MEDS: risperiDONE 0.25 MG TABLET PO SCH (21:08)
[2022-07-16] MEDS: MethylPREDNISolone 40 MG/ML VIAL IVP SCH ×2 (05:25→17:18)
[2022-07-16] MEDS: *HR* Enoxaparin 40 MG/0.4 ML SYRINGE SQ SCH (05:25)
[2022-07-16] MEDS: Budesonide/Formoterol 160/4.5 1 PUFF INH IH SCH ×2 (07:27→21:10)
[2022-07-16] MEDS: Ipratropium/Albuterol Neb 3 ML IH SCH ×2 (07:27→21:10)
[2022-07-16] MEDS: Tiotropium 10 INH DOSE IH SCH (07:27)
[2022-07-16] MEDS: Fenofibrate 54 MG TABLET PO SCH (08:29)
[2022-07-16] MEDS: Aspirin Enteric Coated 81 MG Tablet PO SCH (08:29)
[2022-07-16] MEDS: Lactobacillus 1 EACH CAP.SPRINK PO SCH (08:29)
[2022-07-16] MEDS: Vitamin B Complex/Vit C/Vit E 1 EACH TABLET PO SCH (08:29)
[2022-07-16] MEDS: levoFLOXacin 750 MG TABLET PO SCH (08:29)
[2022-07-16] MEDS: Triamcinolone Acet 0.1% CRM 15 GM TUBE TP SCH (08:34)
[2022-07-16] MEDS: risperiDONE 0.25 MG TABLET PO SCH (19:58)
[2022-07-17] MEDS: MethylPREDNISolone 40 MG/ML VIAL IVP SCH ×2 (05:18→17:02)
[2022-07-17] MEDS: *HR* Enoxaparin 40 MG/0.4 ML SYRINGE SQ SCH (05:18)
[2022-07-17] MEDS: Lactobacillus 1 EACH CAP.SPRINK PO SCH (08:36)
[2022-07-17] MEDS: Fenofibrate 54 MG TABLET PO SCH (08:36)
[2022-07-17] MEDS: Vitamin B Complex/Vit C/Vit E 1 EACH TABLET PO SCH (08:37)
[2022-07-17] MEDS: levoFLOXacin 750 MG TABLET PO SCH (08:37)
[2022-07-17] MEDS: Triamcinolone Acet 0.1% CRM 15 GM TUBE TP SCH (08:37)
[2022-07-17] MEDS: Aspirin Enteric Coated 81 MG Tablet PO SCH (08:37)
[2022-07-17] MEDS: Ipratropium/Albuterol Neb 3 ML IH SCH ×2 (10:07→21:01)
[2022-07-17] MEDS: Tiotropium 10 INH DOSE IH SCH (10:07)
[2022-07-17] MEDS: Budesonide/Formoterol 160/4.5 1 PUFF INH IH SCH ×2 (10:07→21:01)
[2022-07-17] MEDS: risperiDONE 0.25 MG TABLET PO SCH (19:46)
[2022-07-18] MEDS: MethylPREDNISolone 40 MG/ML VIAL IVP SCH (05:54)
[2022-07-18] MEDS: *HR* Enoxaparin 40 MG/0.4 ML SYRINGE SQ SCH (05:55)
[2022-07-18] MEDS: Tiotropium 10 INH DOSE IH SCH (07:30)
[2022-07-18] MEDS: Ipratropium/Albuterol Neb 3 ML IH SCH ×2 (07:30→20:20)
[2022-07-18] MEDS: Budesonide/Formoterol 160/4.5 1 PUFF INH IH SCH ×2 (07:30→20:19)
[2022-07-18] MEDS: Vitamin B Complex/Vit C/Vit E 1 EACH TABLET PO SCH ×2 (08:02→08:03)
[2022-07-18] MEDS: Lactobacillus 1 EACH CAP.SPRINK PO SCH (08:04)
[2022-07-18] MEDS: levoFLOXacin 750 MG TABLET PO SCH (08:04)
[2022-07-18] MEDS: Aspirin Enteric Coated 81 MG Tablet PO SCH (08:04)
[2022-07-18] MEDS: Fenofibrate 54 MG TABLET PO SCH (13:37)
[2022-07-18] MEDS: Triamcinolone Acet 0.1% CRM 15 GM TUBE TP SCH (17:28)
[2022-07-18] MEDS: risperiDONE 0.25 MG TABLET PO SCH (21:56)
[2022-07-19] MEDS: *HR* Enoxaparin 40 MG/0.4 ML SYRINGE SQ SCH (05:23)
[2022-07-19 05:30] LABS: Basophils # 0.1 K/mcL (0.0-0.2); Basophils % 0.4 %; Eosinophils % 0.2 %; Hematocrit 33.6 % (37.5-50.1); Immature Granulocytes % 4.6 % (0-4); Lymphocytes # 1.3 K/mcL (0.6-4.6); Lymphocytes % 10.6 %; Mean Corpuscular HGB Conc 32.7 g/dL (31.6-35.5); Mean Corpuscular Hemoglobin 30.1 pg (28.0-33.3); Mean Corpuscular Volume 91.8 fL (83.0-100.0); Mean Platelet Volume 8.7 fL (9.4-12.4); Monocytes # 0.7 K/mcL (0.0-1.3); Monocytes % 6.1 %; Neutrophils # 9.2 K/mcL (1.6-8.9); Platelet Count 226 K/mcL (140-400); Red Blood Count 3.66 M/mcL (4.19-5.50); Red Cell Distribution Width 14.1 % (11.5-14.5); Segmented Neutrophils % 78.1 %; White Blood Count 11.8 K/mcL (4.3-11.1)
[2022-07-19 05:48] LABS: Calcium 8.7 mg/dL (8.6-10.3)
[2022-07-19] MEDS: levoFLOXacin 750 MG TABLET PO SCH (08:28)
[2022-07-19] MEDS: Aspirin Enteric Coated 81 MG Tablet PO SCH (08:28)
[2022-07-19] MEDS: Fenofibrate 54 MG TABLET PO SCH (08:28)
[2022-07-19] MEDS: predniSONE 20 MG TABLET PO SCH (08:30)
[2022-07-19] MEDS: Lactobacillus 1 EACH CAP.SPRINK PO SCH (08:30)
[2022-07-19] MEDS: Vitamin B Complex/Vit C/Vit E 1 EACH TABLET PO SCH (08:34)
[2022-07-19] MEDS: Triamcinolone Acet 0.1% CRM 15 GM TUBE TP SCH (08:41)
[2022-07-19] MEDS: Tiotropium 10 INH DOSE IH SCH (09:32)
[2022-07-19] MEDS: Ipratropium/Albuterol Neb 3 ML IH SCH ×2 (09:32→21:18)
[2022-07-19] MEDS: Budesonide/Formoterol 160/4.5 1 PUFF INH IH SCH ×2 (09:32→21:18)
[2022-07-19] MEDS: risperiDONE 0.25 MG TABLET PO SCH (20:26)
[2022-07-20] MEDS: *HR* Enoxaparin 40 MG/0.4 ML SYRINGE SQ SCH (05:53)
[2022-07-20] MEDS: levoFLOXacin 750 MG TABLET PO SCH (08:33)
[2022-07-20] MEDS: Lactobacillus 1 EACH CAP.SPRINK PO SCH (08:33)
[2022-07-20] MEDS: Fenofibrate 54 MG TABLET PO SCH (08:34)
[2022-07-20] MEDS: predniSONE 20 MG TABLET PO SCH (08:34)
[2022-07-20] MEDS: Vitamin B Complex/Vit C/Vit E 1 EACH TABLET PO SCH (08:34)
[2022-07-20] MEDS: Triamcinolone Acet 0.1% CRM 15 GM TUBE TP SCH (08:35)
[2022-07-20] MEDS: Aspirin Enteric Coated 81 MG Tablet PO SCH (08:35)
[2022-07-20] MEDS: Tiotropium 10 INH DOSE IH SCH (10:04)
[2022-07-20] MEDS: Ipratropium/Albuterol Neb 3 ML IH SCH ×2 (10:04→20:39)
[2022-07-20] MEDS: Budesonide/Formoterol 160/4.5 1 PUFF INH IH SCH ×2 (10:05→20:39)
[2022-07-20] MEDS ORDERED: Ergocalciferol (VIT D2) 50,000 UNIT (1.25MG) CAP PO SCH (18:39)
[2022-07-20] MEDS: risperiDONE 0.25 MG TABLET PO SCH (19:35)
[2022-07-21] MEDS: *HR* Enoxaparin 40 MG/0.4 ML SYRINGE SQ SCH (05:24)
[2022-07-21 07:41] VITALS: BP 133/72; PULSE 75; TEMP 98.1
[2022-07-21] MEDS: Aspirin Enteric Coated 81 MG Tablet PO SCH (08:15)
[2022-07-21] MEDS: levoFLOXacin 750 MG TABLET PO SCH (08:15)
[2022-07-21] MEDS: predniSONE 20 MG TABLET PO SCH (08:15)
[2022-07-21] MEDS: Vitamin B Complex/Vit C/Vit E 1 EACH TABLET PO SCH (08:16)
[2022-07-21] MEDS: Lactobacillus 1 EACH CAP.SPRINK PO SCH (08:16)
[2022-07-21] MEDS: Fenofibrate 54 MG TABLET PO SCH (08:16)
[2022-07-21] MEDS: Triamcinolone Acet 0.1% CRM 15 GM TUBE TP SCH (08:19)
[2022-07-21] MEDS: Ipratropium/Albuterol Neb 3 ML IH SCH (10:14)
[2022-07-21] MEDS: Budesonide/Formoterol 160/4.5 1 PUFF INH IH SCH (10:15)
[2022-07-21] MEDS: Tiotropium 10 INH DOSE IH SCH (10:15)
[2022-07-21 10:22] VITALS: RESP 22; O2SAT 93
== END 2022-07-21 12:50 | disposition home health service (06) | DRG 199 ==
LOC: INPGRE 18:30
PROVIDERS: ADMIT Family Medicine; ATTEND Family Medicine